=== PATIENT | female | born 1940 | race Caucasian/White ===

== ENCOUNTER → 2017-12-19 | Outpatient (CLI) | payer MEDICARE, MEDICAID ==
[~2017-12-19] MED LIST: CALCIUM; DETROL2 MG PO; FISH OIL 1,001000 M2 PO; FISH OIL500 M1 PO; FISHOIL PO; FLEXERIL PO; GLUCOSAMINE &1 EACH PO; IBUPROFEN200 M2 PO; LEVOTHYROXIN0.025 MG PO; MIRALAX17 GM PO; MULTI-VITAMIN1 EAC2 PO; NAPROSYN500 MG PO; NORCO 5-325 TA1 EACH PO; PROBIOTIC1 EAC1 PO; SENOKOT-S1 TA1 PO; VESICARE 5 MG TA5 MG PO
== END ==
LOC: M.RAD 10-22 13:50
DX: Z12.31 Encounter for screening mammogram for malignant neoplasm of breast (principal); E03.9 Hypothyroidism, unspecified; M19.90 Unspecified osteoarthritis, unspecified site

== ENCOUNTER 2018-11-18 18:38 | Inpatient (IN) | payer MEDICARE, MEDICAID ==
[~2018-11-18] VITALS: Ht 162.6 cm; Wt 70.4 kg
[2018-11-18 18:41] VITALS: BP 147/71
[2018-11-18 19:05] LABS: ABSOLUTE BASOPHILS 0.1 thou/uL (0.0-0.2); ABSOLUTE EOSINOPHILS 0.2 thou/uL (0.0-0.7); ABSOLUTE LYMPHOCYTES 2.3 thou/uL (0.8-5.3); ABSOLUTE MONOCYTES 0.6 thou/uL (0.0-1.2); ABSOLUTE NEUTROPHILS 4.4 thou/uL (1.6-8.1); BASOPHILS 1.2 %; EOSINOPHILS 2.8 %; HEMATOCRIT 42.1 % (37.0-47.0); HEMOGLOBIN 14.3 gm/dL (12.0-15.0); LYMPHOCYTES 29.9 %; MCH 31.1 pg (26.0-34.0); MCHC 34.1 g/dL (28.0-37.0); MCV 91.2 fL (80.0-100.0); MONOCYTES 8.2 %; MPV 8.1 fl. (7.2-11.1); NUCLEATED RBCS 0 /100WBC; PLATELET COUNT* 268 thou/uL (150-400); POLYS 57.9 %; RBC 4.61 mil/uL (4.20-5.00); RDW-CV 13.6 % (10.5-14.5); WBC 7.6 thou/uL (4.0-11.0)
[2018-11-18 19:18] LABS: APTT 25.4 Seconds (25.0-31.3); PROTIME 10.6 Seconds (9.20-11.50)
[2018-11-18 19:25] LABS: ANION GAP 7 mmol/L (7-16); BUN 24 mg/dL (7-18); CHLORIDE 103 mmol/L (98-107); CO2 29 mmol/L (21-32); CREATININE 1.1 mg/dL (0.6-1.3); GLUCOSE 102 mg/dL (70-99); POTASSIUM 3.9 mmol/L (3.5-5.1); SODIUM 139 mmol/L (136-145); TROPONIN-I LEVEL <0.06 ng/mL (<0.06)
[2018-11-18 19:29] LABS: ALKALINE PHOSPHATASE 68 U/L (46-116); CK-MB MASS 3.2 ng/mL (<0.5-3.6); LIPASE 173 U/L (73-393); MAGNESIUM 2.2 mg/dL (1.8-2.4); NT-PRO BRAIN NAT PEPTIDE 89 pg/mL (<300); SGOT 20 U/L (15-37); SGPT 20 U/L (30-65); TOTAL BILIRUBIN 0.5 mg/dL (<0.1-1.0); TOTAL PROTEIN 7.8 g/dL (6.4-8.2)
[2018-11-18 21:28] VITALS: BP 155/60
[2018-11-18 22:00] VITALS: BP 146/86
[2018-11-19 04:00] VITALS: BP 121/59
[2018-11-19 04:54] LABS: ABSOLUTE BASOPHILS 0.1 thou/uL (0.0-0.2); ABSOLUTE EOSINOPHILS 0.2 thou/uL (0.0-0.7); ABSOLUTE MONOCYTES 0.7 thou/uL (0.0-1.2); ABSOLUTE NEUTROPHILS 3.7 thou/uL (1.6-8.1); EOSINOPHILS 2.5 %; HEMATOCRIT 37.9 % (37.0-47.0); HEMOGLOBIN 12.7 gm/dL (12.0-15.0); LYMPHOCYTES 29.8 %; MCH 30.6 pg (26.0-34.0); MCHC 33.6 g/dL (28.0-37.0); MCV 90.9 fL (80.0-100.0); MONOCYTES 10.6 %; MPV 8.4 fl. (7.2-11.1); NUCLEATED RBCS 0 /100WBC; PLATELET COUNT* 255 thou/uL (150-400); POLYS 56.1 %; RBC 4.17 mil/uL (4.20-5.00); RDW-CV 13.9 % (10.5-14.5); WBC 6.6 thou/uL (4.0-11.0)
[2018-11-19 05:35] LABS: ANION GAP 7 mmol/L (7-16); BUN 20 mg/dL (7-18); CALCIUM 8.6 mg/dL (8.5-10.1); CHLORIDE 108 mmol/L (98-107); CO2 27 mmol/L (21-32); CREATININE 0.9 mg/dL (0.6-1.3); GLUCOSE 91 mg/dL (70-99); MAGNESIUM 2.2 mg/dL (1.8-2.4); POTASSIUM 3.8 mmol/L (3.5-5.1); SODIUM 142 mmol/L (136-145)
[2018-11-19 05:50] LABS: CHOLESTEROL 164 mg/dL (<200); HDL CHOLESTEROL 40 mg/dL (>40); LDL CHOLESTEROL 103 mg/dL (<100); TC:HDL 4.1 Ratio (Not establshd); TRIGLYCERIDE 107 mg/dL (<150); VLDL 21 mg/dL (<40)
[2018-11-19 05:57] LABS: SERUM ASSESSMENT CLEAR
[2018-11-19 08:28] VITALS: BP 148/70
[2018-11-19 12:00] VITALS: BP 153/94
--- NOTE | 2018-11-19 13:41 | EKG ---
[place] [address] ELECTROCARDIOGRAM REPORT Name: MINERVA ACOSTA Room: [address] ADM IN .R.#: [id number] Admission: 11/18/18 Attend Phys: Paul Bradley MD Discharge: Date of : 42 Report #: [id number] THIS REPORT FOR: //name// [facility] ED Test Date: 2018-11-18 Test Time: 18:46:58 Pat Name: MINERVA ACOSTA Department: Room: [facility] Gender: F Early Morning: : 1940 Requested By: Duane Foster Order Number: [id number] MD: Shahid Traylor Measurements Intervals [place] Rate: 86 P: 56 SD: 159 QRS: 25 QRSD: 90 T: 25 QT: 372 QTc: 445 Interpretive Statements Sinus rhythm Abnormal R-wave progression, early transition Compared to ECG 03/31/2015 09:59:23 No significant changes Electronically Signed On 11-19-2018 13:41:39 CDT by Shahid Traylor [email or web address] <ELECTRONICALLY SIGNED> By: Shahid Traylor MD, [facility] 11/19/18 1341 1846 184 Shahid Traylor MD, FACC /EPI
--- NOTE | 2018-11-19 13:45 | EKG ---
[place] [address] ELECTROCARDIOGRAM REPORT Name: MINERVA ACOSTA Room: [address] ADM IN M.R.#: [id number] Admission: 11/18/18 Attend Phys: Paul Bradley MD Discharge: Date of : 42 Report #: [id number] THIS REPORT FOR: //name// [facility] Test Date: 2018-11-19 Test Time: 09:04:04 Pat Name: MINERVA ACOSTA Department: Room: [facility] Gender: F Pyridine Operator: : 1940 Requested By: Paul Bradley Order Number: [id number] Rambo MD: Shahid Traylor Measurements Intervals [place] Rate: 78 P: 65 GA: 174 QRS: 38 QRSD: 83 T: 44 QT: 414 QTc: 472 Interpretive Statements Sinus rhythm Abnormal R-wave progression, early transition Compared to ECG 03/31/2015 09:59:23 No significant changes Electronically Signed On 11-19-2018 13:45:15 CDT by Shahid Traylor [email or web address] <ELECTRONICALLY SIGNED> By: Shahid Traylor MD, [facility] 11/19/18 1345 0904 0904 Shahid Traylor MD, FAC /EPI
--- NOTE | 2018-11-19 15:12 | CARDNUC ---
[place] [address] CARDIAC NUCLEAR IMAGING REPORT Name: MINERVA ACOSTA Room: [address] IN [facility]#: [id number] Admission: 11/18/18 Attend Phys: Paul Bradley MD Discharge: Date of : 42 Date of Service: 11/19/18 1512 Report #: [id number] THIS REPORT FOR: //name// ADDENDUM APPROVED REPORT Imaging Protocol: Rest Tc-99m/Stress Tc-99m 1 day Study performed: 11/19/2018 09:32:00 Indication: Chest pain Patient Location: In-Patient Room #: 205 Stress Tech: Hannah Leos Stress Nurse: Ann Coy RN NM Tech:WARREN Hudson Ht: 5 ft 4 in Wt: 155 lbs BSA: 1.76 m2 HR: 81 bpm BP: 136/74 mmHg BMI: 26.60 Rhythm: NSR Medical History Medical History: Hyperlipidemia Medications: Aspirin Allergies: No known drug allergies Cardiac Risk Factors: Hyperlipidemia Previous Cardiac Procedures: None Pretest Chest Pain Characteristics: Chest pain Exercise History: Sedentary Resting Data Rest SPECT myocardial perfusion imaging was performed in supine position 30 minutes following the intravenous injection of 11.4 mCi of Tc-99m Sestamibi. Time of rest injection: 1005 Date: 11/19/2018 The images were gated to evaluate regional wall motion and calculate left ventricular ejection fraction. Administration Route: IV Administration Site: Left AC Pharmacologic Stress Pharmacologic stress test was performed by injecting Regadenoson 0.4 mg IV push over 10-15 seconds immediately followed by the intravenous injection of 33.7 mCi of Tc-99m Sestamibi. Time of stress injection: 1140 Administration Route: [place] [address] CARDIAC NUCLEAR IMAGING REPORT Name: MINERVA ACOSTA Room: [address]#: [id number] Admission: 11/18/18 Attend Phys: Paul Bradley MD Discharge: Date of : 42 Date of Service: 11/19/18 1512 Report #: [id number] Administration Site: Left AC Gated Stress SPECT was performed 40 minutes after stress injection. The images were gated to evaluate regional wall motion and calculate left ventricular ejection fraction. Prone imaging was performed. Stress Test Details Stress Test: Pharmacologic stress testing performed using 0.4 mg of regadenoson per 5 mL given IV over 10 seconds. Reason for pharmacologic stress test: physical limitation. HR Max Heart Rate (APMHR): 143 bpm Resting HR: 81 bpm Target HR (85% APMHR): 121 bpm Max HR Achieved: 110 bpm % of APMHR: 76 Recovery HR: 90 bpm BP Resting BP: 136/74 mmHg Max BP: 97/66 mmHg Recovery BP: 142/72 mmHg ECG Resting ECG: Sinus Rhythm Stress ECG: Sinus Tachycardia ST Change: None Arrhythmia: None Recovery ECG: Sinus Rhythm Recovery ST Change: None Recovery Arrhythmia: None Clinical Reason for Termination: Completed protocol The patient tolerated Lexiscan infusion without significant symptoms. Nurse Comments pt too weak to walk on treadmill Stress ECG Conclusion The baseline 12-lead EKG showed sinus rhythm without significant ST segment abnormalities. EKGs obtained during and post Lexiscan infusion show sinus rhythm and sinus tachycardia with no significant ST or T wave changes when compared to baseline. There were no significant [place] [address] CARDIAC NUCLEAR IMAGING REPORT Name: MINERVA ACOSTA Room: [address]#: [id number] Admission: 11/18/18 Attend Phys: Paul Bradley MD Discharge: Date of : 42 Date of Service: 11/19/18 1512 Report #: [id number] Study Quality Study: Good Artifact: No artifact Study Data Post stress, the left ventricular ejection was 74%.. Perfusion Post stress myocardial perfusion images show uniform uptake of the radioisotope throughout the myocardium without defect. Wall Motion Normal left ventricular wall motion. Nuclear Conclusion ECG Findings: negative for ischemia Clinical Findings: negative for ischemia Nuclear Findings: negative for ischemia Exercise Capacity: not assessed Left Ventricular Function: normal Risk Study: low Myocardial perfusion images show no defect to suggest infarct or ischemia. Left ventricular systolic function is normal on gated studies. This is a low risk study. <Conclusion> The baseline 12-lead EKG showed sinus rhythm without significant ST segment abnormalities. EKGs obtained during and post Lexiscan infusion show sinus rhythm and sinus tachycardia with no significant ST or T wave changes when compared to baseline. There were no significant stress-induced arrhythmias. <ELECTRONICALLY SIGNED> By: Shahid Traylor MD, FACC 11/19/18 151 11 11 Shahid Traylor MD, FACC /INF
[2018-11-19] MEDS ORDERED: PROTONIX40 M2 PO (15:13)
[2018-11-19] MEDS ORDERED: SYNTHROID50 MCG PO (15:14)
[2018-11-19 16:00] VITALS: BP 126/78
[2018-11-19 16:21] VITALS: BP 153/94
[2018-11-19 23:07] LABS: GLYCOHEMOGLOBIN (HGB A1C) 6.1 % (4.8-5.6)
== END 2018-11-19 19:02 | disposition home or self-care (01) | DRG 392 ==
LOC: M.ERS 18:38 → M.2W 19:47 → M.TBA-ER 19:47 → M.2W 21:08
PROVIDERS: Family Medicine; ADMIT Family Medicine
DX: K21.9 Gastro-esophageal reflux disease without esophagitis (principal); N18.3 Chronic kidney disease, stage 3 (moderate); E03.9 Hypothyroidism, unspecified; F03.90 Unspecified dementia, unspecified severity, without behavioral disturbance, psychotic disturbance, mood disturbance, and anxiety; K59.00 Constipation, unspecified; E78.5 Hyperlipidemia, unspecified; Z90.49 Acquired absence of other specified parts of digestive tract; Z98.42 Cataract extraction status, left eye; Z98.41 Cataract extraction status, right eye; Z79.899 Other long term (current) drug therapy

== ENCOUNTER → 2018-12-17 | Outpatient (CLI) | payer MEDICARE, MEDICAID ==
[~2018-12-17] MED LIST changes: +PROTONIX40 M2 PO; +SYNTHROID50 MCG PO
== END ==
LOC: M.RAD 08:43
DX: M47.22 Other spondylosis with radiculopathy, cervical region (principal); M40.292 Other kyphosis, cervical region; M48.02 Spinal stenosis, cervical region

== ENCOUNTER → 2019-01-25 | Outpatient (CLI) | payer MEDICARE, MEDICAID ==
[2019-01-25 06:54] LABS: ABSOLUTE BASOPHILS 0.1 thou/uL (0.0-0.2); ABSOLUTE EOSINOPHILS 0.1 thou/uL (0.0-0.7); ABSOLUTE LYMPHOCYTES 1.3 thou/uL (0.8-5.3); ABSOLUTE MONOCYTES 0.4 thou/uL (0.0-1.2); ABSOLUTE NEUTROPHILS 4.3 thou/uL (1.6-8.1); BASOPHILS 1.1 %; EOSINOPHILS 2.3 %; HEMATOCRIT 40.4 % (37.0-47.0); HEMOGLOBIN 13.6 gm/dL (12.0-15.0); LYMPHOCYTES 20.8 %; MCH 30.4 pg (26.0-34.0); MCHC 33.6 g/dL (28.0-37.0); MCV 90.4 fL (80.0-100.0); MONOCYTES 7.1 %; MPV 8.2 fl. (7.2-11.1); NUCLEATED RBCS 0 /100WBC; PLATELET COUNT* 272 thou/uL (150-400); POLYS 68.7 %; RBC 4.47 mil/uL (4.20-5.00); RDW-CV 13.8 % (10.5-14.5); WBC 6.3 thou/uL (4.0-11.0)
[2019-01-25 07:15] LABS: CALCIUM 8.9 mg/dL (8.5-10.1); POTASSIUM 4.1 mmol/L (3.5-5.1)
[2019-01-25 07:20] LABS: ALBUMIN 3.6 g/dL (3.4-5.0); PHOSPHORUS* 3.4 mg/dL (2.5-4.9); TOTAL BILIRUBIN 0.7 mg/dL (<0.1-1.0); TOTAL PROTEIN 6.8 g/dL (6.4-8.2)
== END ==
LOC: M.LAB 06:19 → M.MRI 07:30
PROVIDERS: Psychiatry & Neurology Neuromuscular Medicine
DX: G51.39 Clonic hemifacial spasm, unspecified (principal); I67.82 Cerebral ischemia; M62.838 Other muscle spasm

== ENCOUNTER → 2019-01-27 | Outpatient (CLI) | payer MEDICARE, MEDICAID | LOC: M.MRI 08:09 | DX: M50.223 Other cervical disc displacement at C6-C7 level (principal); M47.812 Spondylosis without myelopathy or radiculopathy, cervical region; M41.82 Other forms of scoliosis, cervical region; G51.39 Clonic hemifacial spasm, unspecified ==

== ENCOUNTER → 2019-02-16 | Outpatient (CLI) | payer MEDICARE, MEDICAID | LOC: M.RAD 10:40 | DX: Z12.31 Encounter for screening mammogram for malignant neoplasm of breast (principal) ==

== ENCOUNTER → 2019-03-30 | Outpatient (CLI) | payer MEDICARE, MEDICAID | LOC: M.RAD 09:00 | DX: Z13.820 Encounter for screening for osteoporosis (principal); M47.22 Other spondylosis with radiculopathy, cervical region; Z78.0 Asymptomatic menopausal state ==